=== PATIENT | female | born 1980 | race Caucasian/White ===

== ENCOUNTER 2018-07-10 12:40 | Emergency (ER) | payer OTHER, SELFPAY ==
[2018-07-10 13:09] LABS: #Eosinphils 0.1 thou/uL (0.0-0.7); #Lymphocytes 1.8 thou/uL (1.20-3.40); #Monocytes 0.4 thou/uL (0.11-0.59); #Neutrophils 4.2 thou/uL (1.40-6.50); %Basophils 0.5 % (0.0-1.0); %Lymphocytes 27.7 % (21.0-51.0); %Monocytes 6.4 % (0.0-10.0); %Neutrophils 63.3 % (42.0-75.0); Hemoglobin 15.2 g/dL (12.0-16.0); Mean Corpuscular HGB CONC 35.4 g/dL (32.0-36.0); Mean Corpuscular Hemoglobin 33.8 pg (27.0-31.0); Mean Corpuscular Volume 95.7 fL (78.0-98.0); Mean Platelet Volume 7.4 fL (7.4-10.4); Platelet Count 308 thou/uL (130-400); RBC Distribution Width 11.2 % (11.5-14.5); Red Blood Cell (RBC) Count 4.48 mill/uL (4.20-5.40); White Blood Cell (WBC) Count 6.6 thou/uL (4.8-10.8)
[2018-07-10 13:41] LABS: CKMB 0.7 ng/mL (0-6.6); Troponin I Less than 0.010 ng/mL (< 0.028)
[2018-07-10 13:44] LABS: ALT (SGPT) 56 U/L (8-55); AST (SGOT) 50 U/L (5-34); Albumin 4.7 g/dL (3.5-5.0); Alkaline Phosphatase 73 U/L (40-150); Anion Gap 14 mmol/L (10-20); BUN (Urea Nitrogen) 9 mg/dL (7.0-18.7); Bilirubin, Total 0.5 mg/dL (0.2-1.2); Calc. Creatinine Clearance 0 mL/min (70-130); Calcium 10.1 mg/dL (7.8-10.44); Carbon Dioxide 22 mmol/L (22-29); Chloride 104 mmol/L (98-107); Estimated GFR-MDRD 82; Globulin 4.3 g/dL (2.4-3.5); Glucose 117 mg/dL (70-105); Potassium 4.5 mmol/L (3.5-5.1); Sodium 135 mmol/L (136-145)
[2018-07-10] MEDS ORDERED: Ondansetron ODT 4 MG TAB ONE (13:50)
[2018-07-10] MEDS ORDERED: Meclizine HCl 25 MG TAB ONE ×2 (13:50→16:31)
[2018-07-10 14:04] LABS: Bilirubin Negative (Negative); Blood, Urine Negative (Negative); Clarity CLEAR (Clear); Glucose, Urine (Dipstick) Negative (Negative); Leukocyte Negative (Negative); Nitrite Negative (Negative); Protein, Urine (Dipstick) Negative (Neg-Trace); Specific Gravity, Urine 1.008 (1.002-1.036); Urobilinogen 0.2 mg/dL (0.2-1.0)
[2018-07-10 14:06] LABS: Pregnancy Test - Urine (BHCG) Negative (Negative); Pregu Control Background? CLEAR/WHITE (CLR/WHITE); Pregu Control Bar Appear? YES (CONTROL BAR); Specific Gravity 1.008 (1.002-1.036)
--- NOTE | 2018-07-10 14:08 | CT ---
CT BRAIN: Date: 07/10/18 PROVIDED CLINICAL HISTORY: Vertigo and nausea. COMPARISON: 03/23/15. FINDINGS: The ventricular system appears normal in size and morphology. There is no evidence for intracranial h emorrhage or mass effect. The extracranial soft tissues and osseous structures demonstrate an unremar kable CT appearance. IMPRESSION: No evidence for intracranial hemorrhage or mass effect. POS: [facility]
== END 2018-07-10 17:48 | disposition home or self-care (01) ==
LOC: ERS 12:40
DX: R42 Dizziness and giddiness (principal); I10 Essential (primary) hypertension; M19.90 Unspecified osteoarthritis, unspecified site; F41.9 Anxiety disorder, unspecified; Z79.899 Other long term (current) drug therapy
CPT/HCPCS: 70450; 80053; 81003; 81025; 82553; 84484; 85025; 93005; 94760; Q0162

== ENCOUNTER 2018-09-11 14:21 | Outpatient (CLI) | payer OTHER ==
[~2018-09-11 14:21] MED LIST: Gadobenate Dimeglumine 529 MG/1 ML (20ML VIAL) ONE
--- NOTE | 2018-09-11 16:45 | MRI ---
MRI OF THE BRAIN WITH AND WITHOUT CONTRAST: 09/11/18 INDICATION: Vertigo. FINDINGS: No hemorrhage on the axial gradient echo sequence. The calvarium has a normal T1 marrow signal intens ity. Midline brain parenchymal structures are unremarkable. No parenchymal mass, mass effect or midli ne shift. Brain volume is age appropriate. Cortical mitchell-white matter differentiation is preserved. Ventricles and sulci are patent and symmetric. Mucous retention cyst involving both maxillary sinuses. Adequate mastoid air cell aeration. Central arterial flow voids are maintained. Absent restricted diffusion. No pathologically enhancement of the brain parenchyma. IMPRESSION: 1. No pathologic enhancement of the brain parenchyma. 2. Absent restricted diffusion. No acute infarct. 3. No abnormal white matter hyperintensities. POS: [facility]
== END 2018-09-11 14:22 | disposition home or self-care (01) ==
LOC: BICMRI 14:21
PROVIDERS: ATTEND Psychiatry & Neurology Neurology
DX: R42 Dizziness and giddiness (principal)
CPT/HCPCS: 70553; 82565; A9579

== ENCOUNTER 2020-04-27 18:31 | Emergency (ER) | payer BC, OTHER ==
[2020-04-28 15:44] LABS: SARS-CoV-2 MS2 Positive; SARS-CoV-2 N Gene Negative; SARS-CoV-2 S Gene Negative; SARS-CoV-2 orf1ab Negative
== END 2020-04-27 19:06 | disposition home or self-care (01) ==
LOC: ERS 18:31
DX: Z20.828 Contact with and (suspected) exposure to other viral communicable diseases (principal); I10 Essential (primary) hypertension; F41.9 Anxiety disorder, unspecified; Z87.442 Personal history of urinary calculi
CPT/HCPCS: 87635; 99283; U0003

== ENCOUNTER 2020-08-08 09:27 | Emergency (ER) | payer BC, OTHER ==
[2020-08-08] MEDS ORDERED: Fentanyl 100 MCG/2 ML VIAL ONE (10:04)
[2020-08-08] MEDS ORDERED: Ketorolac Tromethamine 30 MG/ML VIAL ONE (10:04)
[2020-08-08 10:17] LABS: Bacteria/HPF 1+ HPF (None Seen); Bilirubin Negative (Negative); Blood, Urine 3+ (Negative); Clarity Turbid (Clear); Glucose, Urine (Dipstick) Normal (Negative); Ketone, Urine Negative (Negative); Leukocyte 25 Leu/uL (Negative); Nitrite Negative (Negative); Pregnancy Test - Urine (BHCG) Negative (Negative); Pregu Control Background? CLEAR/WHITE (CLR/WHITE); Pregu Control Bar Appear? YES (CONTROL BAR); Protein, Urine (Dipstick) 20 mg/dL (Neg-Trace); RBC/HPF 0-3 HPF (0-3); Specific Gravity 1.024 (1.002-1.036); Specific Gravity, Urine 1.024 (1.002-1.036); Squamous Epithelial 21-50 HPF (0-3); Urobilinogen Normal mg/dL (Less than 2); pH, Urine 5.5 (5.0-9.0)
[2020-08-08 10:48] LABS: #Basophils 0.1 thou/uL (0.0-0.2); #Eosinphils 0.1 thou/uL (0.0-0.7); #Lymphocytes 2.5 thou/uL (1.20-3.40); #Monocytes 0.3 thou/uL (0.11-0.59); #Neutrophils 3.6 thou/uL (1.40-6.50); %Basophils 1.3 % (0.0-1.0); %Eosinophils 2.2 % (0.0-10.0); %Lymphocytes 37.5 % (21.0-51.0); %Monocytes 5.1 % (0.0-10.0); Hemoglobin 14.5 g/dL (12.0-16.0); Mean Corpuscular HGB CONC 34.7 g/dL (32.0-36.0); Mean Corpuscular Hemoglobin 31.6 pg (27.0-31.0); Mean Platelet Volume 8.2 fL (7.4-10.4); Platelet Count 279 thou/uL (130-400); RBC Distribution Width 11.5 % (11.5-14.5); Red Blood Cell (RBC) Count 4.59 mill/uL (4.20-5.40); White Blood Cell (WBC) Count 6.7 thou/uL (4.8-10.8)
--- NOTE | 2020-08-08 10:50 | CT ---
CT lumbar spine noncontrast: 08/08/2020 HISTORY: 40-year-old female with low back pain FINDINGS: There are several tiny calculi in the upper and lower pole calyces of the left kidney, new since the previous abdominal and pelvic CT of 08/25/[address], a tiny calculus was present in the right renal upper pole. That may or may not currently be present. Images of the kidneys are degraded by patient breathing motion, and the outer portions of the bilateral kidneys are excluded from the [id number]. There are 5 lumbar-type vertebrae. No scoliosis. Vertebral body heights are maintained. The rest of the disc spaces are maintained. Bilateral pedicle screws at L4 and L5. Mild grade 1 anterolisthesis of L4 on L5. Interbody cage mater ial at the narrowed L4-5 disc space. Bilateral L4 pars interarticularis defects. Moderate neural foraminal stenosis bilaterally at L4-5. At L2-3, diffuse disc bulge results in mild to moderate central spinal canal stenosis. At L3-4 similar appearing diffuse disc bulge plus ligamentum flavum thickening results in mild to mod erate central spinal canal stenosis. Midline laminectomy defect at L4-5. No acute fracture identified. No signs of hardware loosening. No hematoma in the perivertebral spaces. IMPRESSION: 1.) Nephrolithiasis, consisting of at least 3 tiny left renal calculi. No hydronephrosis. 2) status post laminectomy and posterior lumbar interbody fusion with hardware, stabilizing a mild gr mehul 1 spondylolisthesis due to bilateral L4 spondylolysis. 3) no acute compression fracture.
[2020-08-08 10:53] LABS: ALT (SGPT) 25 U/L (8-55); AST (SGOT) 26 U/L (5-34); Albumin 4.3 g/dL (3.5-5.0); Alkaline Phosphatase 71 U/L (40-110); Anion Gap 14 mmol/L (10-20); BUN (Urea Nitrogen) 9 mg/dL (7.0-18.7); Bilirubin, Total 0.5 mg/dL (0.2-1.2); Calc. Creatinine Clearance 0 mL/min (70-130); Calcium 9.3 mg/dL (7.8-10.44); Carbon Dioxide 20 mmol/L (22-29); Chloride 107 mmol/L (98-107); Estimated GFR-MDRD 81; Globulin 3.5 g/dL (2.4-3.5); Glucose 162 mg/dL (70-105); Potassium 4.3 mmol/L (3.5-5.1); Protein, Total 7.8 g/dL (6.0-8.3); Sodium 137 mmol/L (136-145)
== END 2020-08-08 11:10 | disposition home or self-care (01) ==
LOC: ERS 09:27
DX: S39.012A Strain of muscle, fascia and tendon of lower back, initial encounter (principal); I10 Essential (primary) hypertension; F41.9 Anxiety disorder, unspecified; Z79.899 Other long term (current) drug therapy; X50.1XXA Overexertion from prolonged static or awkward postures, initial encounter
CPT/HCPCS: 72131; 80053; 81003; 81015; 81025; 85025; 96374; 96375; J1885; J3010

== ENCOUNTER 2022-03-28 09:14 | Emergency (ER) | payer BC ==
[2022-03-28] MEDS ORDERED: Ketorolac Tromethamine 30 MG/ML VIAL ONE (09:49)
== END 2022-03-28 11:56 | disposition home or self-care (01) ==
LOC: ERS 09:14
DX: M54.42 Lumbago with sciatica, left side (principal); I10 Essential (primary) hypertension; M19.90 Unspecified osteoarthritis, unspecified site; F17.290 Nicotine dependence, other tobacco product, uncomplicated; E28.2 Polycystic ovarian syndrome; Z87.442 Personal history of urinary calculi; Z79.899 Other long term (current) drug therapy
CPT/HCPCS: 96372; 99283; J1885

== ENCOUNTER 2022-04-01 20:00 | Emergency (ER) | payer BC ==
[2022-04-01] MEDS ORDERED: Ketorolac Tromethamine 30 MG/ML VIAL ONE (21:29)
[2022-04-01] MEDS ORDERED: oxyCODONE/Acetaminophen 5 mg/325 mg Tablet PO SCH (21:45)
== END 2022-04-01 23:16 | disposition home or self-care (01) ==
LOC: ERS 20:00
DX: M54.50 Low back pain, unspecified (principal); F17.290 Nicotine dependence, other tobacco product, uncomplicated; Z79.899 Other long term (current) drug therapy
CPT/HCPCS: 72100; 96372; J1885